=== PATIENT | male | born 1980 | race Caucasian/White ===

== ENCOUNTER 2023-09-25 15:52 | Emergency (ER) | payer MEDICARE, MEDICAID, SELFPAY | END 2023-09-25 17:55 | disposition left against medical advice (07) | PROVIDERS: Emergency Provider Emergency Medicine | DX: K08.89 Other specified disorders of teeth and supporting structures (principal); Z53.21 Procedure and treatment not carried out due to patient leaving prior to being seen by health care provider ==

== ENCOUNTER 2025-09-21 23:12 | Emergency (ER) | payer MEDICARE, MEDICAID, SELFPAY ==
--- NOTE | 2025-09-21 | ECG_ITS ---
Test Reason : CHEST PAIN Blood Pressure : */* mmHG Vent. Rate : 117 BPM Atrial Rate : 117 BPM P-R Int : 132 ms QRS Dur : 78 ms QT Int : 368 ms P-R-T Axes : 77 47 69 degrees QTcB Int : 513 ms Sinus tachycardia Right atrial enlargement Anteroseptal infarct , age undetermined Abnormal ECG When compared with ECG of 03-Dec-2009 17:36, QRS voltage has decreased Anteroseptal infarct is now Present ST no longer elevated in Anterior leads Nonspecific T wave abnormality now evident in Anterior leads Referred By: Generic ED Physician Electronically Signed By: ARPITA PIZARRO
--- NOTE | ~2025-09-21 | XR_ITS ---
CLINICAL HISTORY: cp Chest X-ray, 1 View COMPARISON: None provided FINDINGS: No consolidation. No pleural effusion. No pneumothorax. No cardiomegaly. No acute fracture. IMPRESSION: No acute findings. This document has been electronically signed by: Johnathan Dowell MD on 09/22/2025 01:00:00
[2025-09-21 23:19] VITALS: BP 154/86; PULSE 129; RESP 20; TEMP 36.9; O2SAT 100; BMI 27.7
--- NOTE | 2025-09-21 23:33 | PC.NURSE ---
pt biba from home, a&ox4, respirations even and unlabored. pt reports n/v/d x2 days with poor po intake as well as sudden onset of chest pain with burning. ems gave pt 4mg zofran and 500ml of normal saline officer captain. pt reports no relief from the zofran. ekg and labs obtained and pt awaiting ed provider
[2025-09-21 23:39] LABS: Hematocrit 45.5 % (42.0-52.0); Hemoglobin 16.5 g/dl (14.0-18.0); Imm Gran Abs Auto 0.06 X10*3/uL (0.00-0.03); Imm Gran Pct Auto 0.4 % (0.0-0.4); Lymphocytes Absolute Auto 1.8 X10*3/uL (1.2-4.9); Mean Corpuscular HGB Conc 36.3 g/dl (31.0-36.0); Mean Corpuscular Hemoglobin 31.2 pg (27.0-33.0); Mean Corpuscular Volume 86.0 fL (80.0-98.0); NRBC Abs Auto 0.000 X10*3/uL (0.0-0.012); NRBC Pct Auto 0.0 /100WBC (0.0-0.2); Platelet Count 352 X10*3/uL (160-400); Red Blood Count 5.29 X10*6/uL (4.60-5.80); White Blood Count 14.2 X10*3/uL (4.8-10.8)
[2025-09-22 00:03] LABS: Alanine Aminotransferase 22 U/L (0-40); Albumin Level 4.8 g/dL (3.5-5.0); Alkaline Phosphatase 104 U/L (39-117); Anion Gap 22 (12-20); Aspartate Amino Transferase 39 U/L (5-37); Blood Urea Nitrogen 13 mg/dL (9-16); Calcium 10.2 mg/dL (8.4-10.2); Carbon Dioxide 23 mmol/L (22-29); Chloride 98 mmol/L (96-108); Creatinine Clr Calc Pharmacy 80.5; Estimated Glomerular Filt Rate > 60; Lipase 11 U/L (8-78); Magnesium 1.7 mg/dL (1.6-2.6); Potassium 3.3 mmol/L (3.3-5.1); Sodium 140 mmol/L (135-145); Total Protein 7.4 g/dL (6.5-8.0); Troponin-I High Sensitivity < 2.7 ng/L (<3.5-35.0)
[2025-09-22 00:19] LABS: Resp Syncy Virus RNA Qual PCR NEGATIVE (Negative); SARS COV2 PCR INHOUSE NEGATIVE (Negative)
--- OUTSIDE RECORDS SUMMARY | 2025-09-22 00:35 | XMS_ITS | Encounter Summary ---
Author Organization [facility] Address [address] [place] [id number] Phone Care Team Providers Care Manager It Security Name Role Phone Grant Bateman MD Primary Care Provider [phone] Encounter Details Date Type Department Care Team (Late st Contact Info) Description 03/22/2025 Procedure Pass [facility], Ct Scan - [facility] [address] [place] [address] Social History Tobacco Use Types Packs/Day Years Used Date Smoking Tobacco: Every Day Cigarettes Smokeless Tobacco: Never Alcohol Use Standard Drinks/Week Comments Never 0 (1 standard drink = 0.6 oz pur e alcohol) Education Answer Date Recorded Are you interested in more education? Not on derek e 02/15/2023 Are you concerned about learning? Not on file 02/15/2023 No 02/15/2023 No 02/15/2023 Food Answer Date Recorded Within the past 6 months we worried whether our food would run out before we got money to buy more. Never True 03/22/2025 Within the past 6 months the food we bought just didn't last and we didn't have enough money to get more. Never True Residential Stability Answer Date Recor ded What is your housing situation today? I have anabelle sing 03/22/2025 How many times have you move d in the past 12 months? Zero (I did not move) 03/22/2025 Paying for Meds Answer Date Recorded Do you have trouble paying for medicines? No 03/22/2025 Paying Utility Bills Answer Date Record ed Do you have trouble paying your heating or elect ricity bill? No 03/22/2025 Transportation Answer Date Recorded Has the lack of transportati on kept you from medical appointments or from getting medications? No 03/22/2025 Digital Access Answer Date Recorded No 03/22/2025 Yes 03/22/2025 Do you have reliable internet access at home? Ye s 03/22/2025 Do you have a device (e.g., phone, tablet, computer) with a working camera? Yes 03/22/2025 Intimate Partner Violence Answer Date R ecorded Are you denied basic needs s uch as food, clothing, or medical care? No 03/22/2025 In the past 12 months have y ou been in a relationship with a person who hurts, threatens, or tries to control you? No 03/22/2025 Are you denied basic needs s uch as food, clothing, or medical care? No 03/22/2025 In the past 12 months have y ou been in a relationship with a person who hurts, threatens, or tries to control you? No 03/22/2025 Sex and Gender Information Value Date Recorded Sex Assigned at Male 12/05/2019 10:04 PM EST Legal Sex Male 9:23 PM EDT Gender Identity Male 12/05/2019 10:04 PM EST Sexual Orientation Straight 03/23/2023 5: 31 AM EDT documented as of this encounter Functional Status * Calculated C-SSRS Risk Score (Lifetime/Recent) Answer Date of Assessment Author No Risk Indicated 03/22/2025 11:27 AM EDT Gisell Thomas RN * [place] Suicide Severity Rating Scale (Screener/Recent Self-Report) Question Answer Date of Assessment Author 1. Wish to be (Past 1 Month) No 025 11:27 AM EDT Gisell Renteria RN 2. Non-Specific Active Suici alejandro Thoughts (Past 1 Month) No 03/22/2025 11:27 AM MESSIT Ivette Renteria RN 6. Suicidal Behavior (Lifetime) No 11:27 AM MESSIT Gisell Renteria RN documented as of this encounter Plan of Treatment Not on file documented as of this encounter Visit Diagnoses Not on filedocumented in this encounter Care Teams Manager It Security Relationship Specialty Start Date End Date Grant Bateman MD [address] [place] [address] [email or web address] PCP - General Internal Medicine 08/19/24 documented as of this encounter Additional Source Comments The information contained in this document represents components of the legal health record. It is not the complete legal health record.[facility]
--- OUTSIDE RECORDS SUMMARY | 2025-09-22 00:35 | XMS_ITS | Encounter Summary ---
Author Organization [facility] Address [address] [place] [address] Phone Care Team Providers Care Trial Lawyer Name Role Phone Grant Bateman MD Primary Care Provider [phone] Encounter Details Date Type Department Care Team (Late st Contact Info) Description 03/22/2025 Procedure Pass [facility], Ct Scan - [facility] [address] [place] [address] Social History Tobacco Use Types Packs/Day Years Used Date Smoking Tobacco: Every Day Cigarettes Smokeless Tobacco: Never Alcohol Use Standard Drinks/Week Comments Never 0 (1 standard drink = 0.6 oz pur e alcohol) Education Answer Date Recorded Are you interested in more education? Not on edrek e 02/15/2023 Are you concerned about learning? [...] 11:27 AM EDT Gisell Thomas RN * [place] Suicide Severity Rating Scale (Screener/Recent Self-Report) Question [...] on filedocumented in this encounter Care Teams Trial Lawyer Relationship Specialty Start Date End Date Grant Bateman MD [address] [place] [address] [email or web address] PCP - General Internal Medicine 08/19/24 documented as of this encounter Additional Source Comments The information contained in this document represents components of the legal health record. It is not the complete legal health record.[facility]
--- OUTSIDE RECORDS SUMMARY | 2025-09-22 00:35 | XMS_ITS | Encounter Summary ---
Author Organization [facility] Address [address] [place] [address] Phone Care Team Providers Care Ice Skating Coach Name Role Phone Grant Bateman MD Primary Care Provider [phone] Encounter Details Date Type Department Care Team (Late st Contact Info) Description 03/22/2025 Procedure Pass [facility], Ct Scan - [facility] [address] [place] [address] Social History Tobacco Use Types Packs/Day Years [...] 11:27 AM EDT Gisell Thomas RN * Real Suicide Severity Rating Scale (Screener/Recent Self-Report) Question [...] on filedocumented in this encounter Care Teams Ice Skating Coach Relationship Specialty Start Date End Date Grant Bateman MD [address] [place] [address] [email or web address] PCP - General Internal Medicine 08/19/24 documented as of this encounter Additional Source Comments The information contained in this document represents components of the legal health record. It is not the complete legal health record.[facility]
--- OUTSIDE RECORDS SUMMARY | 2025-09-22 00:35 | XMS_ITS | Clinical Summary ---
Author Organization [facility] Address [address] [place] [address] Phone Care Team Providers Care Manufacturing Engineering Technologist Name Role Phone Grant Bateman MD Primary Care Provider [phone] Allergies Active Allergy Reactions Criticality Noted Date Comments Acetaminophen 05/27/2025 Aspirin 03/22/2025 Benzodiazepines 03/22/2025 Gdyazgxjlj-Oidbkrgocykvg-Tvvh 2024 Codeine 03/22/2025 Ibuprofen 03/22/2025 Other Reaction(s): Pt states he was told not to take this because he is taking Depakote and it will compromise his liver Nsaids (Non-Steroidal Anti-Inflammatory Drug) 03/22/2025 Sumatriptan 03/22/2025 Other Reaction(s): rash Medications VRAYLAR 4.5 mg capsule 5 Active tadalafiL (CIALIS) 10 MG tablet Take 1 tablet by mouth every morning. 5 Active dextroamphetami ne-amphetamine (ADDERALL) 30 mg Tab tablet TAKE 1 TABLET BY MOUTH TWICE A DAY DNF 05/08/25 PER MD 5 Active dextroamphetami ne-amphetamine (ADDERALL) 10 mg Tab tablet TAKE 1 TAB BY MOUTH DAILY,X30 DAYS. TAKE DAILY IN AFTERNOON DO NOT TAKE AFTER 6PM DUE 05/05 5 Active QUEtiapine (SEROQUEL) 200 MG tablet 5 Active Social History Tobacco Use Types Packs/Day Years Used Date Smoking Tobacco: Every Day Cigarettes Smokeless Tobacco: Never Tobacco Cessation:Ready to Q uit: Not Asked; Counseling Given: Not Answered Alcohol Use Standard Drinks/Week Comments Never 0 [...] Orientation Straight 03/23/2023 5: 31 AM EDT Last Filed Vital Signs Vital Sign Reading Time Taken Comments Blood Pressure 144/98 03/22/2025 1:14 PM EDT Pulse 90 03/22/2025 1:14 PM EDT Temperature 36.4 C (97.5 F) 03/22/2025 1:14 PM EDT Respiratory Rate 18 03/22/2025 1:14 PM EDT Oxygen Saturation 96% 03/22/2025 1:14 PM EDT Inhaled Oxygen Concentration - - Weight 78 kg (172 lb) 03/22/2025 11:28 AM EDT Height 180.3 cm (5' 11 ) 03/22/2025 11:28 AM EDT Body Mass Index 23.99 03/22/2025 11:28 AM EDT Plan of Treatment Health Maintenance Due Date Last Done Comments LIPID PANEL 1979 DEPRESSION SCREENING 1991 SMOKING Hx and SMOKELESS TOBACCO SCREENING 1992 HEPATITIS C SCREENING 1997 HIV ONE-TIME SCREENING (18-6 5 YEARS) 1997 PNEUMOCOCCAL VACCINES (0-49 years) (1 of 2 - PCV) 1998 Adult Td,Tdap Booster 12/31/2023 12/30/2013 , 10/21/2006 COLOGUARD 2024 COLONOSCOPY 2024 COLORECTAL CANCER SCREENING 2024 FIT TEST 2024 FOBT 2024 SIGMOIDOSCOPY 2024 VIRTUAL COLONOSCOPY 2024 INFLUENZA VACCINE (#1) 2025 0, 06/23/2012, 08/09/2011 COVID-19 VACCINE (2024-2 6 season) 2025 02/24/2021 HEPATITIS A VACCINES Aged Out No long er eligible based on patient's age to complete this topic HIB VACCINES Aged Out No longer eligi ble based on patient's age to complete this topic MENINGOCOCCAL VACCINES (ACWY) Aged Out No longer eligible based on patient's age to complete this topic MENINGOCOCCAL VACCINES (B) Aged Out N o longer eligible based on patient's age to complete this topic Medical Devices Not on file Insurance MEDICARE PART A & B [facility] MED[facility] A & B [facility] MED[facility] A & B [facility]IC[facility] PART A & B [place] [facility] PART [facility] & B [facility] MEDIC[facility] PART A & B [facility] MEDIC[facility] PART A & B [facility] MEDICARE PART A & B [employer] MEDICARE PART A & B [facility] MEDICARE PART A & B [facility] [employer]ICLE Care Teams Manufacturing Engineering Technologist Relationship Specialty Start Date End Date Grant Bateman MD [address] [place] [id number] PCP - General Internal Medicine 08/19/24 Additional Source Comments The information contained in this document represents components of the legal health record. It is not the complete legal health record.[facility]
[2025-09-22] MEDS: Lactated Ringers 1,000 ML 999 ML IV ×2 (01:01→01:40)
[2025-09-22 01:02] VITALS: RESP 16
[2025-09-22] MEDS: Magnesium Hydrox/Alum Hydrox 30 ML ORAL.SUSP PO (01:40)
[2025-09-22] MEDS: Lidocaine HCl Viscous 2 % 15 ML SOLUTION MUCOUS MEM (01:40)
[2025-09-22 01:43] VITALS: BP 132/72; PULSE 119; RESP 20; TEMP 37.2; O2SAT 100
--- NOTE | 2025-09-22 01:48 | ED_ITS ---
HPI - General Adult General Chief complaint: Nausea/Vomiting/Diarrhea Stated complaint: n/v/d x3 days burning CP ab pain Time Seen by Provider: 09/21/25 23:13 Source: patient, RN notes reviewed and old records reviewed Mode of arrival: EMS Limitations: no limitations History of Present Illness ED Provider: Xander HORN narrative: 45-year-old male past medical history significant for bipolar disorder, GERD presents for evaluation of abdominal pain with nausea and vomiting. Patient reports a 2 day history that started with diarrhea and associated nausea and vomiting. Today he woke up with severe upper abdominal pain that has worse with vomiting. He reports he has been unable tolerate anything p.o. He denies any previous abdominal surgeries. He denies any alcohol use pain He does smoke marijuana He denies NSAID use He has no other complaints or concerns at this time Denies any black or bloody stool Related Data Previous Rx's ?Medication ?Instructions ?Recorded omeprazole 20 mg capsule,delayed 20 mg PO DAILY #14 ca ps 09/22/25 release ondansetron 4 mg disintegrating 4 mg PO Q8H PRN nausea and 09/22/25 tablet vomiting #20 tabs Allergies Allergy/AdvReac Type Severity Reaction Status Date / Time ibuprofen (From MOTRIN) Allergy Severe ANAPHYLAXIS Verified 09/21/25 23:21 acetaminophen (From TYLENOL) Allergy Intermediate RASH Verified 09/21/25 23:21 aspirin (ASA) Allergy Intermediate RASH Verified 09/21/25 23:21 clonazepam (CLONAZEPAM) Allergy Intermediate RASH Verified 09/21/25 23:21 ketorolac (From TORADOL) Allergy Intermediate RASH Verified 09/21/25 23:21 sumatriptan (SUMATRIPTAN) Allergy Intermediate NAUSEA/RASH Verified 09/21/25 23:21 butalbital (Fioricet) Allergy Unknown Hives Verified 09/21/25 23:21 caffeine (Fioricet) Allergy Unknown Hives Verified 09/21/25 23:21 lamotrigine (Lamictal) Allergy Unknown Hives Verified 09/21/25 23:21 Review of Systems 2 Constitutional: Constitutional: Denies body ache(s), Denies chills, Denies fever(s) and Denies headache(s) Eyes: Eyes: Denies blurry vision ENT: Denies vertigo, Denies dizziness and Denies headache(s) Cardiovascular: Cardiovascular: Denies chest pain and Denies dyspnea on exertion Respiratory: Respiratory: Denies cough and Denies dyspnea on exertion Gastrointestinal: Gastrointestinal: Reports abdominal pain, Denies diarrhea, Denies loose stools, Reports nausea, Reports vomiting and Denies hematemesis Musculoskeletal: Musculoskeletal: Denies back pain Integumentary/Breasts: Skin/Breast: Denies rash Neurologic: Denies vertigo, Denies dizziness and Denies headache(s) Psychiatric: Psychiatric: Denies anxiety PMFSH Social History Social History Smoked in Last 30 Days: Yes Use of substances other than those prescribed or required for medical reasons: No Advance Directives: No Do you have a plan to hurt others: No Plan Physical Exam ED Vital Signs: Vital Signs - 24 hr 09/21/25 23:19 09/22/25 01:02 09/22/25 01:43 Temperature 98.4 F 98.9 F Pulse Rate 129 H 119 H Respiratory Rate 20 16 20 Blood Pressure 154/86 H 132/72 Pulse Oximetry 100 100 Oxygen Delivery Method Room Air Room Air BMI result Body Mass Index 27.7 Const General: healthy appearing, comfortable, no acute distress, alert and awake Nutritional Appearance: well nourished Orientation/consciousness: patient oriented x3 HENMT Head: Yes normocephalic and Yes atraumatic Eyes Eyelids: Yes eyelids normal Conjunctivae: conjunctivae normal Sclerae: sclerae normal Corneas: corneas normal Pupils: Equal, round and reactive pupils present EOM: EOMs intact bilaterally Neck Neck: Yes full ROM Resp Effort & Inspection: normal respiratory effort, able to speak in complete sentences and not labored GI Other: Negative Connell's sign Inspection: No distended Palpation (GI): Soft to palpation, not firm, Tenderness to palpation present (GI), no guarding and not rigid Skin General skin exam: elasticity normal Neuro General: patient oriented x3 Cranial nerves: Yes Equal, round and reactive pupils present and Yes Bilaterally intact EOM present Cognition (Neuro): normal cognition Extrem Other: Moving all extremities well without any obvious deformities Medications Administered Generic Name Dose Route Start Last Admin Trade Name Freq PRN Reason Stop Dose Admin Lactated Ringer's 1,000 mls @ 999 mls/hr 09/22/25 01:30 09/22/25 01:40 Lr IV 09/22/25 02:30 999 mls/hr .Q1H1M CINDY Administration Discontinued Medications Generic Name Dose Route Start Last Admin Trade Name Trentq PRN Reason Stop Dose Admin Al Hydroxide/Mg Hydroxide 30 ml 09/22/25 01:28 09/22/25 01:40 Magnesium Hydrox/Alum Hydrox 30 Ml Oral.Susp PO 09/22/25 01:29 30 ml ONCE ONE Administration Lactated Ringer's 1,000 mls @ 999 mls/hr 09/21/25 23:45 09/22/25 01:39 Lr IV 09/22/25 00:45 Infused .Q1H1M CINDY Infusion Lidocaine HCl 15 ml 09/22/25 01:28 09/22/25 01:40 Lidocaine Hcl Viscous 2 % 15 Ml Solution MUCOUS MEM 09/22/25 01:29 15 ml ONCE ONE Administration Metoclopramide HCl 10 mg 09/22/25 00:23 09/22/25 01:02 Metoclopramide Hcl 10 Mg/2 Ml Vial IVPUSH 09/22/25 00:24 10 mg ONCE ONE Administration Morphine Sulfate 4 mg 09/22/25 00:25 09/22/25 01:02 Morphine Sulfate 4 Mg/Ml Cartridge IVPUSH 09/22/25 00:26 4 mg ONCE ONE Administration Protocol Pantoprazole Sodium 40 mg 09/22/25 00:23 09/22/25 01:01 Pantoprazole Sodium 40 Mg/10 Ml Vial IVPUSH 09/22/25 00:24 40 mg ONCE ONE Administration Medical Decision Making Medical Decision Making [facility] Narrative: 45-year-old male presents for evaluation of upper abdominal pain with nausea and vomiting. He reports that his symptoms started after having bull 3 days ago. He has burning epigastric pain and a history of GERD. He denies alcohol or NSAID use. Has a negative Connell's sign. He is tachycardic to 129 dock on arrival. He is otherwise hemodynamically stable. He had has a leukocytosis which I suspect is related to his vomiting and demargination. He does have an anion gap of 22 which I suspect is due to GI loss with vomiting and diarrhea. This is treated with IV fluids, he received 2 L of lactated Ringer's. His total bilirubin is elevated to 1.4 and primarily indirect bilirubin as only 0.4 is direct. Therefore I suspect he has a stomach ulcer and less likely biliary obstruction. Her troponin is negative despite 3 days of chest pain, his EKG does not show any evidence of ST segment elevation MS. lipase is within normal limits. This is back the patient's symptoms are related to a stomach ulcer, he was given Protonix and morphine initially with some improvement but no significant improvement. I subsequently gave him a GI cocktail with Maalox and viscous lidocaine and he reports almost completely relief of his symptoms. At this time I feel the patient can safely be discharged. I did consider CT scan of the abdomen pelvis and/or ultrasound of the upper quadrant but ultimately deferred as the patient's symptoms improved with GI cocktail. I have a low suspicion for surgical or infectious process. I did give the patient return precautions Differential Diagnosis Differential Diagnoses: The differential diagnosis associated with the presentation includes Peptic ulcer disease GERD Stomach ulcer Cholelithiasis Acute cholecystitis Less likely bowel obstruction Lab Data MDM Lab Attestation statement: I reviewed the patient's lab results. As above 09/21/25 23:32 09/21/25 23:32 Labs: Lab Results 09/21/25 Range/Units 23:32 WBC 14.2 H (4.8-10.8) X10*3/uL RBC 5.29 (4.60-5.80) X10*6/uL Hgb 16.5 (14.0-18.0) g/dl Hct 45.5 (42.0-52.0) % MCV 86.0 (80.0-98.0) fL MCH 31.2 (27.0-33.0) pg MCHC 36.3 H (31.0-36.0) g/dl RDW 12.4 (11.0-16.0) % Plt Count 352 (160-400) X10*3/uL MPV 9.5 (9.4-12.4) fL Immature Gran % (Auto) 0.4 (0.0-0.4) % Neut % (Auto) 77.9 H (45-73) % Lymph % (Auto) 12.6 L (20-40) % [place] % (Auto) 8.7 (2-11) % Eos % (Auto) 0.2 (0-4) % Baso % (Auto) 0.2 (0-2) % Lymph # (Auto) 1.8 (1.2-4.9) X10*3/uL [place] # (Auto) 1.2 (0.1-1.2) X10*3/uL Eos # (Auto) 0.0 (0.0-0.4) X10*3/uL Baso # (Auto) 0.0 (0.0-0.2) X10*3/uL Abs Immat Gran (auto) 0.06 H (0.00-0.03) X10*3/uL Absolute Neuts (auto) 11.0 H (2.0-8.3) x10*3/uL Absolute Nucleated RBC 0.000 (0.0-0.012) X10*3/uL Nucleated RBC % (auto) 0.0 (0.0-0.2) /100WBC Sodium 140 (135-145) mmol/L Potassium 3.3 (3.3-5.1) mmol/L Chloride 98 (96-108) mmol/L Carbon Dioxide 23 (22-29) mmol/L Anion Gap 22 H (12-20) BUN 13 (9-16) mg/dL Creatinine 1.22 (0.5-1.4) mg/dL Estim Creat Clear Calc 80.5 Estimated GFR > 60 Random Glucose 149 H (60-115) mg/dL Calcium 10.2 (8.4-10.2) mg/dL Magnesium 1.7 (1.6-2.6) mg/dL Total Bilirubin 1.4 H (0.0-1.0) mg/dL Direct Bilirubin 0.4 (0.0-0.5) mg/dL AST 39 H (5-37) U/L ALT 22 (0-40) U/L Alkaline Phosphatase 104 (39-117) U/L Troponin I High Sens < 2.7 (<3.5-35.0) ng/L Total Protein 7.4 (6.5-8.0) g/dL Albumin 4.8 (3.5-5.0) g/dL Lipase 11 (8-78) U/L Influenza Type A (PCR) NEGATIVE (Negative) Influenza Type B (PCR) NEGATIVE (Negative) RSV RNA Qual (PCR) NEGATIVE (Negative) SARS-CoV-2 RNA (RT-PCR) NEGATIVE (Negative) Radiology Impression Discussion of test interpretation with radiology: I have reviewed the radiologist's reading. Radiologist Impression: FINDINGS: No consolidation. No pleural effusion. No pneumothorax. No cardiomegaly. No acute fracture. IMPRESSION: No acute findings. This document has been electronically signed by: Johnathan Dowell MD on 09/22/2025 01:00:00 Discharge Plan Discharge Clinical Impression: Acute upper abdominal pain Patient Disposition: Home, Self-Care Instructions: Peptic Ulcer (ED) Additional Instructions: Your history exam as well as labs are most indicative of peptic ulcer disease or stomach ulcers. I recommend taking omeprazole daily for the next 2 weeks You should avoid spicy, greasy foods pain Avoid NSAIDs as well as alcohol. You may use Zofran as needed for nausea and vomiting. Drink lots of fluids, small sips at a time Return for new or worsening symptoms Follow up with GI at the number provided, you may benefit from an upper endoscopy Prescriptions: New omeprazole 20 mg capsule,delayed release(DR/EC) 20 mg PO DAILY Qty: 14 0RF ondansetron 4 mg tablet,disintegrating 4 mg PO Q8H PRN (Reason: nausea and vomiting) Qty: 20 0RF Referrals: [facility] [Provider Group, Gastroenterology] Referral Note: peptic ulcer disease ? endoscopy Print Language: Pashto
[2025-09-22 03:15] VITALS: BP 128/78; PULSE 118; RESP 16; TEMP 37.2; O2SAT 97
== END 2025-09-22 03:20 | disposition home or self-care (01) ==
PROVIDERS: Physician Assistant; Emergency Provider Student in an Organized Health Care Education/Training Program; PCP Internal Medicine
DX: R10.10 Upper abdominal pain, unspecified (principal); R11.2 Nausea with vomiting, unspecified; R19.7 Diarrhea, unspecified; R07.9 Chest pain, unspecified; R00.0 Tachycardia, unspecified; Z03.818 Encounter for observation for suspected exposure to other biological agents ruled out; K21.9 Gastro-esophageal reflux disease without esophagitis
CPT/HCPCS: 36415; 71045; 80053; 82248; 83690; 83735; 84484; 85025; 87637; 93005; 96361; 96374; 96375; 99284; 99285; J2270; J2470; J2765; J7120

== ENCOUNTER → 2025-09-21 23:20 | Outpatient (BNV) | payer MEDICARE, MEDICAID, SELFPAY | PROVIDERS: Emergency Provider Student in an Organized Health Care Education/Training Program; PCP Internal Medicine; Visit Provider Internal Medicine | DX: R00.0 Tachycardia, unspecified (principal); I51.7 Cardiomegaly | CPT/HCPCS: 93010 ==

== ENCOUNTER → 2025-09-21 23:50 | Outpatient (BNV) | payer MEDICARE, MEDICAID, SELFPAY | PROVIDERS: PCP Internal Medicine; Visit Provider Radiology Diagnostic Radiology | DX: R07.9 Chest pain, unspecified (principal) | CPT/HCPCS: 71045 ==